=== PATIENT | male | born 1965 | race African-American/Black ===

== ENCOUNTER 2020-01-23 19:51 | Emergency (ER) | payer MEDICAID ==
[~2020-01-23] VITALS: Ht 185.4 cm; Wt 79.5 kg
[2020-01-23] MEDS ORDERED: BACL10TA PO (20:25)
[2020-01-23] MEDS ORDERED: DULO20CA27 PO (20:25)
[2020-01-23] MEDS ORDERED: TAMS-13 PO (20:25)
[2020-01-23] MEDS ORDERED: CefTRIAXone SODIUM 2 GM in DEXTROSE 5%-WATER 50 ML IV ONE (21:30)
[2020-01-23 22:00] LABS: BASOPHILS % (AUTO) 0.8 % (0.0-2.0); EOSINOPHILS % (AUTO) 5.8 % (1.0-6.0); HEMATOCRIT 38.3 % (41-53); HEMOGLOBIN 12.3 g/dL (13.5-17.5); LYMPHOCYTES # (AUTO) 3.4 K/uL (1.0-4.8); LYMPHOCYTES % (AUTO) 29.7 % (22.0-44.0); MEAN CORPUSCULAR HGB CONC 32.1 G/dL (31.0-37.0); MEAN CORPUSCULAR VOLUME 87 fL (80-100); MONOCYTES # (AUTO) 0.7 K/uL (0.1-1.0); MONOCYTES % (AUTO) 6.6 % (2.0-9.0); NEUTROPHILS # (AUTO) 6.5 K/uL (1.8-7.7); NEUTROPHILS % (AUTO) 57.1 % (40.0-70.0); PLATELET COUNT (AUTO) 336 K/uL (150-450); RED CELL DISTRIBUTION WIDTH 13.8 % (11.5-14.5)
[2020-01-23 22:16] LABS: ANION GAP 1 mmol/L (8-16); CALCIUM, TOTAL 8.7 mg/dL (8.8-10.5); CARBON DIOXIDE 34 mmol/L (22-29); CHLORIDE 106 mmol/L (98-107); CREATININE 1.05 mg/dL (0.60-1.30); GLOMERULAR FILTR. RATE CALC > 60 mL/min (>60); GLUCOSE,RANDOM 109 mg/dL (70-110); POTASSIUM 4.3 mmol/L (3.5-5.1); SODIUM SERUM 141 mmol/L (136-145); UREA NITROGEN, BLOOD 15 mg/dL (7-18)
[2020-01-23] MEDS ORDERED: SODIUM CHLORIDE 0.9% 100 ML ONE (22:26)
[2020-01-23] MEDS ORDERED: IOVERSOL 350 MG/ML 100 ML VIAL ONE (22:26)
[2020-01-24] MEDS ORDERED: HYDROCODONE/ACETAMINOPHEN 5-325 MG TABLET PO ONE (00:30)
[2020-01-24 00:42] VITALS: BP 142/87
== END 2020-01-24 00:45 | disposition home or self-care (01) ==
LOC: EMS 19:51
DX: L03.213 Periorbital cellulitis (principal); F17.210 Nicotine dependence, cigarettes, uncomplicated; F12.90 Cannabis use, unspecified, uncomplicated; F32.9 Major depressive disorder, single episode, unspecified
CPT/HCPCS: 36415; 70481; 80048; 83605; 85025; 87040; 96365; 99285; J0696; J7050; J7060; Q9967